=== PATIENT | female | born 1960 | race Caucasian/White ===

== ENCOUNTER 2020-07-21 05:35 | Inpatient (IN) | payer BC ==
[2020-07-21] MEDS ORDERED: Acetaminophen 500 MG Tab PO ONE (05:45)
[2020-07-21] MEDS: Dextrose 5%-Lactated Ringers 1,000 ML IV SCH ×4 (06:12→22:29)
[2020-07-21] MEDS ORDERED: cefOXitin 2 GM Vial ONE (06:49)
[2020-07-21] MEDS ORDERED: fentaNYL 250 MCG/5 ML SDV ONE (07:05)
[2020-07-21] MEDS ORDERED: Neostigmine Methylsulfate 1 MG/ML 5 ML Syringe ONE (07:05)
[2020-07-21] MEDS ORDERED: Rocuronium 50 MG/5 ML Vial ONE (07:05)
[2020-07-21] MEDS ORDERED: Glycopyrrolate 0.2 MG/ML 5 ML MDV ONE (07:05)
[2020-07-21] MEDS ORDERED: Ondansetron 4 MG/2 ML SDV ONE (07:05)
[2020-07-21] MEDS ORDERED: Propofol 200 MG/20 ML SDV ONE (07:05)
[2020-07-21] MEDS ORDERED: Dexamethasone 4 MG/ML SDV ONE (07:05)
[2020-07-21] MEDS ORDERED: Succinylcholine 200 MG/10 ML MDV ONE (07:05)
[2020-07-21] MEDS ORDERED: Scopolamine 1.5 MG Transdermal Patch TOP ONE (07:15)
[2020-07-21] MEDS ORDERED: ceFAZolin 2 GM in Premix Bag 1 BAG IV ONE (07:15)
[2020-07-21] MEDS ORDERED: Ketamine 500 MG/5 ML MDV IV SCH (07:30)
[2020-07-21] MEDS ORDERED: Ketamine 50 MG in Sodium Chloride 0.9% 49.5 ML IV SCH (07:30)
[2020-07-21] MEDS ORDERED: Ropivacaine 50 ML, dexAMETHasone 8 MG, EPINEPHrine 0.4 MG, Sodium Chloride 0.9% 27.6 ML NERVRT SCH ×4 (07:30)
[2020-07-21] MEDS ORDERED: hydrOXYzine HCL 100 MG/2 ML SDV IM PRN (11:00)
[2020-07-21] MEDS ORDERED: Ondansetron 4 MG/2 ML SDV IVPUSH PRN (11:00)
[2020-07-21] MEDS ORDERED: Labetalol 20 MG/4 ML Syringe IVPUSH PRN (11:00)
[2020-07-21] MEDS: Pantoprazole 40 MG Vial IVPUSH SCH ×2 (11:20→22:30)
[2020-07-21] MEDS: HYDROmorphone 2 MG Tab PO PRN ×2 (15:44→19:47)
[2020-07-21] MEDS: ceFAZolin 2 GM in Premix Bag 1 BAG IV SCH (15:45)
[2020-07-21] MEDS: Heparin Sodium 5,000 Units/ML Vial SUBCUT SCH (15:46)
[2020-07-21] MEDS: Acetaminophen 500 MG Tab PO SCH ×2 (15:47→21:33)
[2020-07-21] MEDS ORDERED: Simvastatin 20 MG Tab PO SCH (21:00)
[2020-07-21] MEDS ORDERED: Montelukast 10 MG Tab PO SCH (21:00)
[2020-07-21] MEDS ORDERED: Nortriptyline 10 MG Cap PO SCH (21:00)
[2020-07-21] MEDS: Oxybutynin 5 MG Tab PO SCH (21:33)
[2020-07-21] MEDS: Propranolol 60 MG Cap.ER PO SCH (21:33)
[2020-07-22] MEDS: ceFAZolin 2 GM in Premix Bag 1 BAG IV SCH ×2 (00:04→07:40)
[2020-07-22] MEDS: HYDROmorphone 2 MG Tab PO PRN ×2 (00:05→04:03)
[2020-07-22] MEDS: Acetaminophen 500 MG Tab PO SCH ×2 (03:57→10:04)
[2020-07-22] MEDS: Heparin Sodium 5,000 Units/ML Vial SUBCUT SCH (03:58)
[2020-07-22] MEDS: Dextrose 5%-Lactated Ringers 1,000 ML IV SCH (05:46)
[2020-07-22] MEDS: Propranolol 60 MG Cap.ER PO SCH (08:51)
[2020-07-22] MEDS: Oxybutynin 5 MG Tab PO SCH (08:52)
[2020-07-22] MEDS ORDERED: SCOPOLAMINE PATCH CHECK TOP SCH (09:00)
[2020-07-22] MEDS ORDERED: Hydrochlorothiazide 25 MG Tab PO SCH (09:00)
--- NOTE | 2020-07-22 13:17 | DISCH ---
ADMISSION DIAGNOSES: Intolerance to laparoscopic gastric band system, morbid obesity, BMI 38, chronic allergic rhinitis, chronic headaches, fibrocystic breast disease, hyperlipidemia, osteopenia, prediabetes, and stress incontinence. DISCHARGE DIAGNOSES: 1. Esophagogastroduodenoscopy with biopsy, CLOtest. 2. Diagnostic laparoscopy with: a. Removal of laparoscopic gastric band system. b. Partial gastrectomy. c. Portion of left hepatic lobectomy. POSTOPERATIVE DIAGNOSES: 1. Intolerance to laparoscopic gastric band secondary to esophageal dilation above band. 2. Area of devascularization of the stomach after takedown of the band. 3. Excision of erosion of band into left lobe of liver. Date of procedure: 07/21/2020. Surgeon: Erick Dailey MD. HISTORY OF PRESENT ILLNESS: Kayla Aaron is a 60-year-old female with intolerance to the laparoscopic gastric band. After preoperative evaluation, discussion of possible risks and possible complications, she wished to proceed with surgical procedure. HOSPITAL COURSE: Kayla had her lap band removed on 07/21/2020. She had no operative complications. On postop day 1, she was able to be discharged to home. PHYSICAL EXAMINATION: GENERAL: Kayla Aaron is a pleasant 60-year-old female, alert and oriented. VITAL SIGNS: Height 5 feet 6 inches, weight is 237 pounds, BMI is 38. TPR 96.4, 60, 18, blood pressure 121/48. HEENT: Negative. NECK: Supple. HEART: Regular rate and rhythm. LUNGS: Clear. ABDOMEN: Dressings dry and intact. Abdominal binder is on. EXTREMITIES: Without peripheral edema. DISPOSITION: Discharged to home. CONDITION: Stable and improving. FOLLOWUP APPOINTMENT: Leanna Lebron PA-C, on 08/01/2020 at 10:15 a.m. HOME MEDICATIONS: 1. Dilaudid 2 mg every 4 hours p.r.n. pain, #30. 2. Flexeril 10 mg every 6 hours p.r.n. muscle spasms. 3. Tylenol Extra Strength 1000 mg q.6 hours p.r.n. pain. 4. To resume home medication Chlor-Trimeton 8 mg oral twice daily. 5. Pepcid complete 1 tablet daily. 6. Singulair 10 mg oral daily. 7. Nortriptyline 20 mg at bedtime. 8. Oxybutynin ER 5 mg oral daily. 9. Inderal 120 mg oral daily. 10.Zocor 20 mg oral daily. 11.Hydrochlorothiazide 25 mg oral daily. DIET: Regular diet. Drink 8 to 10 glasses of water a day. ACTIVITY: No lifting greater than 10 pounds for 6 weeks. Other activity: Walk inside your home 6 times a day. Driving: Do not drive for 1 week and while on pain medication. Shower/bathing: May shower. DISCHARGE INSTRUCTIONS: Notify provider if any fever, increased pain, swelling, redness, drainage, nausea, vomiting. Wound incision care: Keep site clean and dry. Wear abdominal binder for 2 weeks and as tolerated. Special instruction: Use incentive spirometer 10 times every hour while awake. /[id number]
--- NOTE | 2020-08-01 13:28 | OR ---
DATE OF PROCEDURE: 07/21/2020 SURGEON: Erick Dailey MD PREOPERATIVE DIAGNOSIS: Intolerance to laparoscopic adjustable gastric band. POSTOPERATIVE DIAGNOSES: 1. Intolerance to laparoscopic adjustable gastric band secondary to esophageal dilation above the band. 2. Areas of devascularization of stomach, status post takedown of the band. 3. Erosion of the band into left lobe of the liver. OPERATIVE PROCEDURES: 1. Esophagogastroduodenoscopy with antral biopsies for CLOtest (34908). 2. Diagnostic laparoscopy with: a. Removal of laparoscopic adjustable gastric band system (46631). b. Partial gastrectomy (70046). c. Partial left hepatic lobectomy (00140). ANESTHESIA: General. RECORDING STUDIO SETUP WORKER: Leanna Lebron PA-C INDICATIONS FOR PROCEDURE: This is a 60-year-old status post previous laparoscopic adjustable gastric band placement presenting with ongoing intolerance to the band in terms of severe heartburn despite the band being deflated. Plan is to proceed with upper GI endoscopy to rule out help confirm the absence of problems such as erosion of the band through the wall of the stomach which would involve the operative approach followed by removal of the band system. Potential risks including bleeding, infection, injury to underlying viscera, possible perforation in the postoperative period were reviewed along with the significant likelihood of someway regain following the band removal were all gone over and the patient wishes to proceed. DETAILS OF PROCEDURE: The patient was taken to the operating room and after general endotracheal anesthesia was induced, she was placed in a lithotomy position and the abdomen prepped and draped. At 15 cm inferior and 5 cm left of the xiphoid process, a transverse incision was made and the peritoneal cavity entered under direct vision with an Optiview trocar inflated to 15 mmHg pressure of CO2. Laparoscope was then reinserted. No underlying trocar insertion site injuries were seen. Bilateral transversus abdominis plane blocks were then placed and 4 additional trocars were placed across the upper and mid abdomen so as not to fill the small bowel with large amount of air. The duodenum at this point was compressed via laparoscopic instrumentation. The upper GI endoscope was then passed orally through the length of the esophagus into the stomach. Retroflexion revealed no evident erosion of the band into the lumen of the stomach. There was some redness in the antrum consistent with some mild gastritis. The pyloric channel and visualized portions of the duodenum were unremarkable. Biopsies were obtained from the antrum and sent for CLOtest for H pylori and the scope was then withdrawn. Of note, the patient was noted to have a large amount of esophageal dilation above the band consistent with her preoperative symptoms. At this point, the gastroscope was withdrawn and some adhesions between the band and the liver were then taken down. The patient was noted at this point to have had the band eroded into significant portion of the left lobe of the liver on its lateral aspect. This portion of the liver was then resected with CARRINGTON corwin. During the course of dissection, reattachment to the stomach were then taken down with a combination of corwin and electrocautery, and portion of the stomach was also noted to be devascularized and was subsequently resected. The main entrance to the band as encircled in the stomach were then freed up and the band divided and removed with some attached stomach and liver with it and this was delivered to the left lateral trocar site. At this point, the devascularized portion of the stomach was additionally resected with a CARRINGTON stapler and hemostasis was obtained with electrocautery at the liver edges that had been divided as well with no further problems noted. The abdomen was irrigated with antibiotic-containing saline solution. A single Giovanny-Augustin drain was taken out through the left lateral trocar site and positioned adjacent to the liver and gastric resection, and from there up into the splenic fossa. The trocars were removed and the peritoneal cavity deflated. Incisions were closed with some 4-0 Vicryl skin stitch. The patient was taken to the recovery room in satisfactory condition. There were no evident complications. Physician clinical project assistant, Leanna Lebron, played an essential role in assisting in this case, helping to position the patient, retract structures as needed, as well as suturing and cutting sutures when indicated. Her presence improved patient safety and decreased operative time. Erick Dailey MD /[id number]
== END 2020-07-22 10:55 | disposition home or self-care (01) | DRG 222 ==
LOC: JP.MS 05:35 → JP.SDS 05:35 → EDSTATUS 08:45 → JP.MS 08:45
PROVIDERS: ADMIT Surgery; ATTEND Surgery
PROC: 0DP64CZ Removal of Extraluminal Device from Stomach, Percutaneous Endoscopic Approach (ICD-10-PCS; principal; 2020-07-21)
PROC: 0DB64ZZ Excision of Stomach, Percutaneous Endoscopic Approach (ICD-10-PCS; 2020-07-21)
PROC: 0FB24ZZ Excision of Left Lobe Liver, Percutaneous Endoscopic Approach (ICD-10-PCS; 2020-07-21)
PROC: 0DB68ZX Excision of Stomach, Via Natural or Artificial Opening Endoscopic, Diagnostic (ICD-10-PCS; 2020-07-21)
DX: K95.09 Other complications of gastric band procedure (principal); E66.01 Morbid (severe) obesity due to excess calories; Z68.38 Body mass index [BMI] 38.0-38.9, adult; J30.9 Allergic rhinitis, unspecified; E78.5 Hyperlipidemia, unspecified; M85.80 Other specified disorders of bone density and structure, unspecified site; R73.03 Prediabetes; N39.3 Stress incontinence (female) (male); R51.9 Headache, unspecified; N60.19 Diffuse cystic mastopathy of unspecified breast; Z79.899 Other long term (current) drug therapy
CPT/HCPCS: 36415; 82962; 85027; 87081; 94762; A9270-GY; C9113; J0171; J0330; J0690; J0694; J1100; J1790; J2405; J2704; J2710; J2795; J3010; J3490; J7121